=== PATIENT | male | born 1960 | race Caucasian/White ===

== ENCOUNTER 2016-11-27 21:51 | Inpatient (IN) | payer MEDICAID ==
[~2016-11-27] VITALS: Ht 185.4 cm; Wt 112.0 kg
[~2016-11-27 21:51] MED LIST: ALBUAER3 IN; TAM04C PO
[2016-11-27 23:38] LABS: Basophils # (auto) 0 uL; Basophils % (auto) 0.3 % (0.0-2.0); CONDITION Y; Eosinophils # (auto) 0 uL; Eosinophils % (auto) 0.3 % (0.0-7.0); Hematocrit 42.2 % (41.0-53.0); Hemoglobin 14.2 g/dL (13.5-17.5); Lymphocytes # (auto) 1.9 uL; Lymphocytes % (auto) 17.1 % (10.0-50.0); Mean Corpuscular Hemoglobin 31.2 pg (28.0-32.0); Mean Corpuscular Hgb Conc. 33.6 g/dL (32.0-36.0); Mean Corpuscular Volume 92.8 fL (80.0-100.0); Mean Platelet Volume 8.3 fL (7.4-10.4); Monocytes # (auto) 1.4 uL; Neutrophils # (auto) 7.6 uL; Neutrophils % (auto) 69.3 % (37.0-80.0); Platelet Count (auto) 260 10^3/uL (140-450); Red Cell Distribution Width 15.8 % (11.6-16.0)
[2016-11-27 23:55] LABS: INR 0.99 (0.9-1.15); Partial Thromboplastin Time 25.5 sec (22.64-33.71); Prothrombin Time 10.8 sec (9.37-12.3)
[2016-11-27 23:56] LABS: Albumin 2.2 g/dL (3.4-5.0); Anion Gap 10 (5-15); Aspartate Aminotransferase 11 U/L (15-37); BUN/Creatinine Ratio 9.6; Blood Urea Nitrogen 15 mg/dL (7-18); Calcium 6.5 mg/dL (8.5-10.1); Carbon Dioxide 19 mmol/L (21-32); Chloride 118 mmol/L (98-107); GFR African American 60 mL/min; GFR Non-African American 49 mL/min; Glucose 80 mg/dL (74-106); Potassium 3.2 mmol/L (3.5-5.1); Sodium 147 mmol/L (136-145)
[2016-11-28 00:01] LABS: Alkaline Phosphatase 42 U/L (45-117); Bilirubin, Total 0.5 mg/dL (0.2-1.0); Total Protein 5.3 g/dL (6.4-8.2)
[2016-11-28] MEDS ORDERED: SODIUM CHLORIDE 0.9% 1,000 ML IV ONE (07:22)
[2016-11-28 08:18] LABS: Urine Bilirubin Negative (Negative); Urine Blood Negative /uL (Negative); Urine Color Yellow (Yellow); Urine Glucose Normal (Normal); Urine Ketone Negative (Negative); Urine Mucus FEW (None Seen); Urine Nitrite Negative (Negative); Urine RBC <1 /hpf (0 - 3); Urine Squamous Epithelial Cell FEW /hpf (<5); Urine Urobilinogen Normal (Negative)
[2016-11-28] MEDS ORDERED: ACETAMINOPHEN 500 MG TAB PO PRN (09:00)
[2016-11-28] MEDS ORDERED: TEMAZEPAM 15 MG CAP PO PRN (09:00)
[2016-11-28] MEDS ORDERED: MORPHINE SULF INJ 2 MG/ML SYRINGE 1ML IV PRN (09:00)
[2016-11-28] MEDS ORDERED: PROMETHAZINE HCL 25 MG/ML 1ML IV PRN (09:00)
[2016-11-28] MEDS ORDERED: LACTULOSE 20Gm/30ML SOLN PO PRN (09:00)
[2016-11-28] MEDS ORDERED: cefTRIAXone 1GM/50ML D5W 50 ML IV SCH (09:00)
[2016-11-28] MEDS ORDERED: ALBUTEROL SULF 2.5 MG/0.5ML(0.5%) NEB SOLN NEB PRN (09:00)
[2016-11-28] MEDS ORDERED: NITROGLYCERIN 0.4 MG SL TAB SL PRN (09:00)
[2016-11-28] MEDS ORDERED: LORazepam 0.5 MG TAB PO PRN (09:00)
[2016-11-28] MEDS ORDERED: HYDROcodone-ACET 5/325MG TAB PO PRN (09:00)
[2016-11-28] MEDS ORDERED: MORPHINE SULFATE 4 MG/ML SYRG IV PRN (09:00)
[2016-11-28] MEDS: ASPirin 81 mg TAB PO SCH (10:07)
[2016-11-28] MEDS: ENOXAPARIN SOD 40 MG/0.4 ML SYRINGE SC SCH (10:07)
[2016-11-28] MEDS: TAMSULOSIN HYDROCHLORIDE 0.4 MG CAP PO SCH (10:07)
[2016-11-28] MEDS: SODIUM CHLORIDE 0.9% 1,000 ML IV SCH ×2 (10:07→21:45)
[2016-11-28] MEDS: ALBUTEROL SULF 2.5 MG/0.5ML(0.5%) NEB SOLN NEB SCH ×2 (11:00→19:47)
[2016-11-28] MEDS ORDERED: LEVOFLOXACIN 500MG 100 ML IV ONE (11:45)
[2016-11-28] MEDS ORDERED: POTASSIUM CHL 20 Meq TABLET PO ONE (11:45)
[2016-11-28 17:29] VITALS: BP 102/70
[2016-11-28] MEDS: FUROSEMIDE 20 MG/2 ML VIAL IV SCH (17:45)
[2016-11-28] MEDS ORDERED: cefTRIAXone 1GM/50ML D5W 50 ML IV ONE (18:30)
[2016-11-28 19:51] VITALS: BP 102/70
[2016-11-28] MEDS: PANTOPRAZOLE 40 MG TAB PO SCH (20:24)
[2016-11-28 21:30] VITALS: BP 99/64
[2016-11-28] MEDS ORDERED: ATORVASTATIN 20 MG TAB PO SCH ×2 (22:00)
[2016-11-29] VITALS (7 sets, daily range): BP systolic 102–115; BP diastolic 59–77
[2016-11-29] MEDS: ALBUTEROL SULF 2.5 MG/0.5ML(0.5%) NEB SOLN NEB SCH ×3 (00:28→11:53)
[2016-11-29] MEDS: FUROSEMIDE 20 MG/2 ML VIAL IV SCH ×2 (05:32→17:54)
[2016-11-29 06:41] LABS: Basophils # (auto) 0 uL; Basophils % (auto) 0.6 % (0.0-2.0); CONDITION Y; Eosinophils # (auto) 0.2 uL; Eosinophils % (auto) 2.5 % (0.0-7.0); Hematocrit 47.4 % (41.0-53.0); Hemoglobin 16.4 g/dL (13.5-17.5); Lymphocytes # (auto) 2.6 uL; Lymphocytes % (auto) 32.8 % (10.0-50.0); Mean Corpuscular Hemoglobin 31.5 pg (28.0-32.0); Mean Corpuscular Hgb Conc. 34.6 g/dL (32.0-36.0); Mean Corpuscular Volume 91.3 fL (80.0-100.0); Mean Platelet Volume 8.7 fL (7.4-10.4); Monocytes # (auto) 1.1 uL; Monocytes % (auto) 14.1 % (0.0-12.0); Neutrophils # (auto) 3.9 uL; Platelet Count (auto) 297 10^3/uL (140-450); Red Cell Distribution Width 15.4 % (11.6-16.0); White Blood Cell 7.8 10^3/uL (4.4-10.8)
[2016-11-29 06:49] LABS: INR 0.96 (0.9-1.15); Prothrombin Time 10.5 sec (9.37-12.3)
[2016-11-29 06:54] LABS: Albumin 2.7 g/dL (3.4-5.0); BUN/Creatinine Ratio 12.4; Magnesium 2.2 mg/dL (1.6-2.6); Potassium 3.8 mmol/L (3.5-5.1)
[2016-11-29 07:09] LABS: Bilirubin, Total 0.7 mg/dL (0.2-1.0)
[2016-11-29] MEDS ORDERED: cefTRIAXone 1GM/50ML D5W 50 ML IV SCH (09:00)
[2016-11-29] MEDS: ASPirin 81 mg TAB PO SCH (09:11)
[2016-11-29] MEDS: SODIUM CHLORIDE 0.9% 1,000 ML IV SCH (09:11)
[2016-11-29] MEDS: ENOXAPARIN SOD 40 MG/0.4 ML SYRINGE SC SCH (09:12)
[2016-11-29] MEDS: PANTOPRAZOLE 40 MG TAB PO SCH (09:12)
[2016-11-29] MEDS: TAMSULOSIN HYDROCHLORIDE 0.4 MG CAP PO SCH (09:12)
[2016-11-29] MEDS ORDERED: LEVOFLOXACIN 500MG 100 ML IV SCH (10:00)
[2016-11-29] MEDS ORDERED: ATOR20TA50 PO (14:28)
[2016-11-29] MEDS ORDERED: ASPI81CH43 PO (14:28)
== END 2016-11-29 19:08 | disposition home or self-care (01) | DRG 45 ==
LOC: EDBD 21:51 → ER 22:03 → TELE 22:04 → TELE-E-ADS 11-28 12:45 → TELE-CENTR 11-28 16:32
PROVIDERS: ADMIT Internal Medicine; ATTEND Internal Medicine
DX: I63.9 Cerebral infarction, unspecified (principal); N17.0 Acute kidney failure with tubular necrosis; I27.2 Other secondary pulmonary hypertension; I95.9 Hypotension, unspecified; E87.8 Other disorders of electrolyte and fluid balance, not elsewhere classified; E87.1 Hypo-osmolality and hyponatremia; J44.1 Chronic obstructive pulmonary disease with (acute) exacerbation; D72.829 Elevated white blood cell count, unspecified; E83.51 Hypocalcemia; N20.0 Calculus of kidney; E86.0 Dehydration; E87.6 Hypokalemia; F15.10 Other stimulant abuse, uncomplicated; G47.10 Hypersomnia, unspecified; G56.02 Carpal tunnel syndrome, left upper limb; I25.2 Old myocardial infarction; N40.0 Benign prostatic hyperplasia without lower urinary tract symptoms; T67.5XXA Heat exhaustion, unspecified, initial encounter; Z80.0 Family history of malignant neoplasm of digestive organs; Z80.1 Family history of malignant neoplasm of trachea, bronchus and lung; Z83.3 Family history of diabetes mellitus; Z85.038 Personal history of other malignant neoplasm of large intestine; Z90.5 Acquired absence of kidney; E66.9 Obesity, unspecified; Z68.32 Body mass index [BMI] 32.0-32.9, adult; Z71.89 Other specified counseling; R20.8 Other disturbances of skin sensation; I45.10 Unspecified right bundle-branch block; I25.10 Atherosclerotic heart disease of native coronary artery without angina pectoris
CPT/HCPCS: 36415; 70450; 70551; 71010; 74176; 80053; 80061; 80307; 81001; 82150; 82550; 82607; 82746; 83690; 83735; 84443; 84484; 85025; 85379; 85610; 85652; 85730; 86141; 87086; 93005; 93306; 93886; 94640; 94761; 96361; 96365; 96367; 96372; J0696; J1956

== ENCOUNTER 2019-02-22 01:21 | Inpatient (IN) | payer MEDICAID ==
[~2019-02-22] VITALS: Ht 185.4 cm; Wt 128.3 kg
[~2019-02-22 01:21] MED LIST changes: +ASPI81CH43 PO; +ATOR20TA50 PO
[2019-02-22 02:15] LABS: Basophils # (auto) 0 uL; Basophils % (auto) 0.3 % (0.0-2.0); Eosinophils # (auto) 0 uL; Eosinophils % (auto) 0.3 % (0.0-7.0); Hematocrit 48.9 % (41.0-53.0); Hemoglobin 16.4 g/dL (13.5-17.5); Lymphocytes # (auto) 2.7 uL; Lymphocytes % (auto) 20.9 % (10.0-50.0); Mean Corpuscular Hemoglobin 31.4 pg (28.0-32.0); Mean Corpuscular Hgb Conc. 33.5 g/dL (32.0-36.0); Mean Corpuscular Volume 93.9 fL (80.0-100.0); Monocytes # (auto) 2.3 uL; Neutrophils # (auto) 7.9 uL; Neutrophils % (auto) 60.5 % (37.0-80.0); Platelet Count (auto) 278 10^3/uL (140-450); Red Blood Cells 5.21 10^6/uL (4.5-5.90); Red Cell Distribution Width 14.3 % (11.8-14.3)
[2019-02-22] MEDS ORDERED: FUROSEMIDE 20 MG/2 ML VIAL IV ONE (02:15)
[2019-02-22] MEDS ORDERED: MORPHINE SULFATE 4 MG/ML SYR/VIAL IV ONE (02:30)
[2019-02-22] MEDS ORDERED: ONDANSETRON HCL 4 MG/2 ML VIAL IV ONE (02:30)
[2019-02-22 02:31] LABS: INR 0.96 (0.9-1.15); Partial Thromboplastin Time 24.5 sec (23.64-32.05)
[2019-02-22 02:33] LABS: Albumin 2.8 g/dL (3.4-5.0); Anion Gap 8 (5-15); BUN/Creatinine Ratio 30.3; Blood Urea Nitrogen 43 mg/dL (7-18); Calcium 7.7 mg/dL (8.5-10.1); Carbon Dioxide 25 mmol/L (21-32); Chloride 101 mmol/L (98-107); GFR African American 66 mL/min; GFR Non-African American 54 mL/min; Glucose 113 mg/dL (74-106); Magnesium 2.4 mg/dL (1.6-2.6); Potassium 3.4 mmol/L (3.5-5.1); Sodium 134 mmol/L (136-145)
[2019-02-22 02:38] LABS: Alanine Aminotransferase 20 U/L (16-61); Alkaline Phosphatase 57 U/L (45-117); Aspartate Aminotransferase 16 U/L (15-37); Bilirubin, Total 0.5 mg/dL (0.2-1.0); Total Protein 6.4 g/dL (6.4-8.2)
[2019-02-22] MEDS ORDERED: LEVOFLOXACIN 750MG 150 ML IV ONE (04:00)
[2019-02-22] MEDS ORDERED: methylPREDNISolone SOD SUCC 125 MG/2 ML VL IV ONE (04:00)
[2019-02-22] MEDS ORDERED: IPRATROPIUM BROM 0.5 MG/2.5ML INH SOL NEB ONE (06:00)
[2019-02-22] MEDS ORDERED: ALBUTEROL SULF 2.5 MG/0.5ML(0.5%) NEB SOLN NEB ONE (06:00)
[2019-02-22] MEDS ORDERED: HYDROcodone-ACET 5/325MG TAB PO PRN (07:45)
[2019-02-22] MEDS ORDERED: NITROGLYCERIN 0.4 MG SL TAB SL PRN (07:45)
[2019-02-22] MEDS ORDERED: MORPHINE SULF INJ 2 MG/ML SYRINGE 1ML IV PRN (07:45)
[2019-02-22] MEDS ORDERED: ACETAMINOPHEN 325 MG TAB PO PRN (07:45)
[2019-02-22] MEDS ORDERED: TEMAZEPAM 15 MG CAP PO PRN (07:45)
[2019-02-22] MEDS ORDERED: ONDANSETRON HCL 4 MG/2 ML VIAL IV PRN (07:45)
[2019-02-22] MEDS: SILDENAFIL CITRATE 20 MG TAB PO SCH ×3 (08:39→20:19)
[2019-02-22] MEDS ORDERED: POTASSIUM CHL 20 Meq TABLET PO ONE (08:45)
[2019-02-22] MEDS ORDERED: CARV3.1240 (08:45)
[2019-02-22] MEDS ORDERED: TAMS0.4C36 (08:45)
[2019-02-22] MEDS ORDERED: SILD20TA18 (08:45)
[2019-02-22] MEDS ORDERED: ALBUTEROL SULF 2.5 MG/0.5ML(0.5%) NEB SOLN NEB PRN (08:45)
[2019-02-22] MEDS ORDERED: LISI-275 (08:45)
[2019-02-22] MEDS ORDERED: FUR20T (08:45)
[2019-02-22] MEDS ORDERED: potassium (08:45)
[2019-02-22 09:22] LABS: Alcohol, Urine < 3.0 mg/dL (0-5); Amphetamine Screen, Urine POSITIVE (NEGATIVE); Barbiturate Scree,Urine NEGATIVE (NEGATIVE); Benzodiazephine Screen, Urine NEGATIVE (NEGATIVE); Cannabinoid Screen, Urine NEGATIVE (NEGATIVE); Cocaine Screen, Urine NEGATIVE (NEGATIVE); Opiate Scree,Urine NEGATIVE (NEGATIVE); Phencyclidine Screen, Urine NEGATIVE (NEGATIVE)
[2019-02-22] MEDS ORDERED: ADENOSINE 103 MG in GIVE UN-DILUTED 0 ML IV STA (10:13)
[2019-02-22] MEDS: CARVEDILOL 3.125 MG TAB PO SCH ×2 (10:36→22:15)
[2019-02-22] MEDS: FUROSEMIDE 20 MG TAB PO SCH (10:36)
[2019-02-22] MEDS: APIXABAN 5 MG TAB PO SCH ×2 (10:36→22:15)
[2019-02-22] MEDS: ASPirin 81 mg TAB PO SCH (10:36)
[2019-02-22] MEDS: LISINOPRIL 5 MG TAB PO SCH (10:37)
--- NOTE | 2019-02-22 11:00 | NUR ---
ER TRANSFER PATIENT TRANSFERRED TO [facility] ROOM BY ER STAFF. NO REPORT WAS GIVEN. CHARGE NURSE AWARE. PT IS SITTING IN BED. ALERT AND ORIENTED. NO SIGNS OF DISTRESS NOTED. INSTRUCTED OF POC AND TO CALL FOR ASSISTANCE PRN. BED IN LOWEST POSITION. SIDE RAILS UP X2. WILL CONTINUE TO MONITOR.
--- NOTE | 2019-02-22 11:10 | NUR ---
NO TRANSFER REPORT OR NOTICE RECEIVED FROM ER. CHARGE NURSE AWARE.
--- NOTE | 2019-02-22 11:20 | NUR ---
DOCTOR AT BEDSIDE. SPOKE WITH PATIENT. DISCUSSED POC.
[2019-02-22 11:23] VITALS: BP 114/74
[2019-02-22 12:09] VITALS: BP 138/66
[2019-02-22 13:00] VITALS: BP 114/74
[2019-02-22 17:00] VITALS: BP 112/68
[2019-02-22] MEDS: TAMSULOSIN HYDROCHLORIDE 0.4 MG CAP PO SCH (18:18)
[2019-02-22] MEDS ORDERED: SODIUM CHLORIDE 0.9% 500 ML IV SCH (19:30)
--- NOTE | 2019-02-22 19:50 | NUR ---
Opening Shift Note Assumed care of patient, awake and alert. No S/S of distress/SOB or pain. Patient was a little anxious about the procedure thats going to happen tomorrow. I try to hear him out about his concerns. Instructed on POC and to call for assist PRN, will continue to monitor for changes Q1hr and PRN.
[2019-02-22 21:46] VITALS: BP 117/80
[2019-02-22] MEDS: ATORVASTATIN 20 MG TAB PO SCH (22:15)
[2019-02-23 04:59] VITALS: BP 129/70
[2019-02-23 08:09] LABS: Basophils # (auto) 0 uL; Basophils % (auto) 0.3 % (0.0-2.0); Eosinophils # (auto) 0 uL; Eosinophils % (auto) 0.1 % (0.0-7.0); Hematocrit 49.5 % (41.0-53.0); Hemoglobin 16.4 g/dL (13.5-17.5); Lymphocytes % (auto) 12.7 % (10.0-50.0); Mean Corpuscular Hemoglobin 31.1 pg (28.0-32.0); Mean Corpuscular Volume 94.1 fL (80.0-100.0); Monocytes % (auto) 12.9 % (0.0-12.0); Neutrophils # (auto) 11.6 uL; Nucleated Red Blood Cells % 0.1 %; Platelet Count (auto) 273 10^3/uL (140-450); Red Blood Cells 5.27 10^6/uL (4.5-5.90); Red Cell Distribution Width 13.9 % (11.8-14.3); White Blood Cell 15.6 10^3/uL (4.4-10.8)
--- NOTE | 2019-02-23 08:13 | NUR ---
OPENING SHIFT NOTE ASSUMED CARE OF PATIENT. PATIENT AWAKE IN BED AND ALERT AND ORIENTED. NO SIGNS OF DISTRESS. INSTRUCTED OF POC AND TO CALL FOR ASSISTANCE PRN. BED IN LOWEST POSITION. SIDE RAILS UP X2. WILL CONTINUE TO MONITOR.
[2019-02-23 08:23] LABS: Calcium 7.9 mg/dL (8.5-10.1); Potassium 4.8 mmol/L (3.5-5.1)
[2019-02-23 08:25] LABS: BUN/Creatinine Ratio 26.4
[2019-02-23 08:29] LABS: INR 0.96 (0.9-1.15); Partial Thromboplastin Time 25.6 sec (23.64-32.05)
[2019-02-23 09:00] VITALS: BP 116/88
[2019-02-23] MEDS: predniSONE 20 MG TAB PO SCH (09:45)
[2019-02-23] MEDS: SILDENAFIL CITRATE 20 MG TAB PO SCH ×3 (09:45→21:47)
[2019-02-23] MEDS: LISINOPRIL 5 MG TAB PO SCH (09:45)
[2019-02-23] MEDS: ASPirin 81 mg TAB PO SCH (10:00)
[2019-02-23] MEDS: FUROSEMIDE 20 MG TAB PO SCH (10:00)
[2019-02-23] MEDS: APIXABAN 5 MG TAB PO SCH ×2 (10:00→21:47)
[2019-02-23] MEDS: CARVEDILOL 3.125 MG TAB PO SCH ×2 (10:00→21:47)
[2019-02-23 13:00] VITALS: BP 129/66
--- NOTE | 2019-02-23 13:41 | NUR ---
PT TAKEN TO RN PEDIATRIC. NO DISTRESS NOTED.
[2019-02-23] MEDS ORDERED: MIDAZOLAM HCL 1MG/1ML-2 ML VIAL ONE (13:58)
[2019-02-23] MEDS ORDERED: ANGIOMAX 250 MG VIAL IV ONE (13:58)
[2019-02-23] MEDS ORDERED: SODIUM CHL 0.9% 0 ML ONE (13:58)
[2019-02-23] MEDS ORDERED: fentaNYL CITRATE 100 MCG/2 ML VL ONE (13:58)
--- NOTE | 2019-02-23 14:30 | NUR ---
RECEIVED CARDIAC MR FAX FROM [facility] PER REQUEST.
[2019-02-23] MEDS ORDERED: IOHEXOL 350 MG/ML 100ML IJ ONE (14:59)
[2019-02-23] MEDS ORDERED: LIDOCAINE 2%HCL (LOCAL ANESTH.) INJ 20ML MDV ONE (14:59)
--- NOTE | 2019-02-23 15:30 | NUR ---
PT RETURNED FROM [employer]. NO DISTRESS NOTED. PT RESTING COMFORTABLY IN BED. CAN SIT UP AT 1700. VITAL SIGNS STABLE. DIET RESUMED.
[2019-02-23 16:38] VITALS: BP 114/81
[2019-02-23] MEDS: TAMSULOSIN HYDROCHLORIDE 0.4 MG CAP PO SCH (17:13)
--- NOTE | 2019-02-23 19:45 | NUR ---
ASSUMED CARE, PT. AWAKE, RELATIVE AT BEDSIDE, NO C/O PAIN, DRESSING ON RT. GROIN DRY AND INTACT, NO SOB.
[2019-02-23] MEDS: ATORVASTATIN 20 MG TAB PO SCH (21:48)
[2019-02-23 23:06] VITALS: BP 108/62
[2019-02-24] VITALS (7 sets, daily range): BP systolic 93–112; BP diastolic 55–71
[2019-02-24 05:44] LABS: BUN/Creatinine Ratio 27.7; Calcium 7.5 mg/dL (8.5-10.1); Potassium 3.8 mmol/L (3.5-5.1)
[2019-02-24] MEDS: SILDENAFIL CITRATE 20 MG TAB PO SCH ×3 (08:15→20:00)
[2019-02-24] MEDS: FUROSEMIDE 20 MG TAB PO SCH (09:18)
[2019-02-24] MEDS: LISINOPRIL 5 MG TAB PO SCH (09:19)
[2019-02-24] MEDS: predniSONE 20 MG TAB PO SCH (09:19)
[2019-02-24] MEDS: CARVEDILOL 3.125 MG TAB PO SCH ×2 (09:20→21:10)
[2019-02-24] MEDS: APIXABAN 5 MG TAB PO SCH ×2 (09:20→21:09)
[2019-02-24] MEDS: ASPirin 81 mg TAB PO SCH (09:20)
[2019-02-24] MEDS: ALBUTEROL SULF 2.5 MG/0.5ML(0.5%) NEB SOLN NEB SCH ×3 (14:23→22:43)
[2019-02-24] MEDS: TAMSULOSIN HYDROCHLORIDE 0.4 MG CAP PO SCH (17:50)
[2019-02-24] MEDS: BUDESONIDE (INHALATION) 0.5 MG/2 ML NEB NEB SCH (19:19)
--- NOTE | 2019-02-24 19:30 | NUR ---
assumed care, pt. awake, no c/o pain, pt. having breathing treatment, not in distress.
[2019-02-24] MEDS: ATORVASTATIN 20 MG TAB PO SCH (21:10)
--- NOTE | 2019-02-24 22:45 | NUR ---
pt. c/o chest pain, 10, v/s as follows, bp-108/66, p-77, r-20, sats at 98%, to keep monitor.
--- NOTE | 2019-02-24 22:51 | NUR ---
pt. on breathing tx at this time, pt. refused pain pill and iv pain med. no c/o pain of chest pain at this time.
[2019-02-25] MEDS: ALBUTEROL SULF 2.5 MG/0.5ML(0.5%) NEB SOLN NEB SCH ×5 (02:07→18:44)
--- NOTE | 2019-02-25 05:10 | NUR ---
v/s stable, no c/o chest pain, not in distress.
[2019-02-25 05:30] VITALS: BP 128/70
[2019-02-25] MEDS: BUDESONIDE (INHALATION) 0.5 MG/2 ML NEB NEB SCH (07:36)
[2019-02-25] MEDS: SILDENAFIL CITRATE 20 MG TAB PO SCH ×2 (08:25→14:12)
[2019-02-25 09:00] VITALS: BP 127/82
--- NOTE | 2019-02-25 09:05 | NUR ---
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
--- NOTE | 2019-02-25 09:15 | NUR ---
called family spoke to Arturo the son, made aware transportation ETA will be at 0930.
--- NOTE | 2019-02-25 10:10 | NUR ---
PT SEEN BY DR. HARRIS PER DR. HARRIS PT IS CLEARED BY CARDIOLOGY TO BE DISCHARGED WITH [facility].
[2019-02-25] MEDS ORDERED: APIX5TAB PO (10:20)
[2019-02-25] MEDS: APIXABAN 5 MG TAB PO SCH (10:24)
[2019-02-25] MEDS: predniSONE 20 MG TAB PO SCH (10:24)
[2019-02-25] MEDS: FUROSEMIDE 20 MG TAB PO SCH (10:24)
[2019-02-25] MEDS: ASPirin 81 mg TAB PO SCH (10:25)
[2019-02-25] MEDS: CARVEDILOL 3.125 MG TAB PO SCH (10:26)
[2019-02-25] MEDS: LISINOPRIL 5 MG TAB PO SCH (10:27)
--- NOTE | 2019-02-25 11:48 | NUR ---
LASHANDA OF [employer] CALLED, SHE REQUESTED TO FAX ECHOCARDIOGRAM REPORT TO COMPLETE [facility] ORDER. FAX NUMBER [phone], TEL# [phone]. ECHOCARDIOGRAM REPORT FAXED.
[2019-02-25 13:00] VITALS: BP 108/64
[2019-02-25 13:34] VITALS: BP 108/64
--- NOTE | 2019-02-25 15:44 | NUR ---
NUTRITION ASSESSMENT NOTES Please refer to link notes of nutrition screen form filed under the intervention section of the plan of care for further details. Est. Needs: 1950 kcal to 2550 kcal (15-20 kcal/kgBW), 84 gms to 101 gms pro (1.0-1.2 gms/kgIBW: 84 kg). Will continue to monitor pertinent labs and reassess nutrient need prn Thank you. Addendum: 02/25/19 at [address] Amended: Links added.
[2019-02-25 17:00] VITALS: BP 127/67
--- NOTE | 2019-02-25 17:35 | NUR ---
Zoll vest delivered, pt was educated on how to use the zoll vest, demonstration done by the [employer] admissions representative and pt verbalized understanding.
[2019-02-25] MEDS: TAMSULOSIN HYDROCHLORIDE 0.4 MG CAP PO SCH (18:00)
--- NOTE | 2019-02-25 18:15 | NUR ---
Discharge instructions given as ordered. Encourage to follow up with Dr. Eugene on March 08, pt has previous appointment, follow up [facility] Dr. Oneal Brown in 1 week, pt verbalized he will make his own appointment. All questions and concerns addressed. Patient verbalized understanding. Medication reconciliation form completed and copy given to patient. IV removed with catheter intact, pressure dressing applied. Telemetry unit returned to ICU. Patient taken to vehicle via wheelchair with all personal belongings, accompanied by staff and family member. No distress noted at time of departure.
--- NOTE | 2019-02-25 18:44 | NUR ---
RT NOTE RT TO SEE PT FOR HHN TX. BED IS EMPTY. SPOKE WITH NURSE AND PT WAS DISCHARGED. MEDS WERE RETURNED TO [facility].
== END 2019-02-25 18:25 | disposition home or self-care (01) | DRG 192 ==
LOC: ER 01:22 → TELE 01:23 → TELE-WESTW 10:50
PROVIDERS: ADMIT Nurse Practitioner; ATTEND Internal Medicine Nephrology
PROC: 4A023N8 Measurement of Cardiac Sampling and Pressure, Bilateral, Percutaneous Approach (ICD-10-PCS; principal; 2019-02-23)
PROC: B2111ZZ Fluoroscopy of Multiple Coronary Arteries using Low Osmolar Contrast (ICD-10-PCS; 2019-02-23)
PROC: B2151ZZ Fluoroscopy of Left Heart using Low Osmolar Contrast (ICD-10-PCS; 2019-02-23)
DX: I11.0 Hypertensive heart disease with heart failure (principal); N17.0 Acute kidney failure with tubular necrosis; J96.01 Acute respiratory failure with hypoxia; J44.0 Chronic obstructive pulmonary disease with (acute) lower respiratory infection; I27.20 Pulmonary hypertension, unspecified; I42.7 Cardiomyopathy due to drug and external agent; J45.901 Unspecified asthma with (acute) exacerbation; I50.23 Acute on chronic systolic (congestive) heart failure; J44.1 Chronic obstructive pulmonary disease with (acute) exacerbation; D72.829 Elevated white blood cell count, unspecified; J20.9 Acute bronchitis, unspecified; F15.10 Other stimulant abuse, uncomplicated; E66.9 Obesity, unspecified; I25.10 Atherosclerotic heart disease of native coronary artery without angina pectoris; Z80.0 Family history of malignant neoplasm of digestive organs; Z80.1 Family history of malignant neoplasm of trachea, bronchus and lung; Z87.442 Personal history of urinary calculi; Z82.49 Family history of ischemic heart disease and other diseases of the circulatory system; Z83.3 Family history of diabetes mellitus; Z86.711 Personal history of pulmonary embolism; I25.2 Old myocardial infarction; Z68.37 Body mass index [BMI] 37.0-37.9, adult
CPT/HCPCS: 36415; 71045; 78452; 80048; 80053; 80307; 83735; 83880; 84484; 85025; 85610; 85730; 86850; 86900; 86901; 93005; 93017; 93306; 93460; 94640; 96361; 96365; 96375; 99152; 99153; C1751; G0378; J0153; J1956; J2250; J2405

== ENCOUNTER 2022-05-20 20:55 | Inpatient (IN) | payer MEDICAID ==
[~2022-05-20] VITALS: Ht 182.9 cm; Wt 121.5 kg
[~2022-05-20 20:55] MED LIST changes: +APIX5TAB PO; +SILD20TA2
[2022-05-20 21:36] VITALS: BP 125/77
[2022-05-20] MEDS ORDERED: ALBUTEROL SULF 2.5 MG/0.5ML(0.5%) NEB SOLN NEB ONE (21:45)
[2022-05-20] MEDS ORDERED: IPRATROPIUM BROM 0.5 MG/2.5ML INH SOL NEB ONE (21:45)
[2022-05-20] MEDS ORDERED: ACETAMINOPHEN 325 MG TAB PO ONE ×2 (21:49→22:00)
[2022-05-20 22:20] LABS: Basophils # (auto) 0 10 ^3/uL (0-0.2); Basophils % (auto) 0.5 % (0.0-2.0); Eosinophils # (auto) 0.2 10 ^3/uL (0-0.8); Eosinophils % (auto) 1.8 % (0.0-7.0); Hematocrit 49.4 % (41.0-53.0); Hemoglobin 16.8 g/dL (13.5-17.5); Lymphocytes # (auto) 3.1 10 ^3/uL (0.4-5.4); Lymphocytes % (auto) 34.4 % (10.0-50.0); Mean Corpuscular Hemoglobin 31.7 pg (28.0-32.0); Mean Corpuscular Hgb Conc. 34.1 g/dL (32.0-36.0); Mean Corpuscular Volume 93.1 fL (80.0-100.0); Monocytes # (auto) 1.5 10 ^3/uL (0-1.3); Monocytes % (auto) 16.5 % (0.0-12.0); Neutrophils # (auto) 4.2 10 ^3/uL (1.6-8.6); Neutrophils % (auto) 46.8 % (37.0-80.0); Nucleated Red Blood Cells % 0.1 %; Red Cell Distribution Width 15.4 % (11.8-14.3)
[2022-05-20] MEDS ORDERED: methylPREDNISolone SOD SUCC 125 MG/2 ML VL IV ONE (22:30)
[2022-05-20 22:31] LABS: Albumin 2.8 g/dL (3.4-5.0); Calcium 8.4 mg/dL (8.5-10.1); Potassium 4.5 mmol/L (3.5-5.1)
[2022-05-20 22:33] LABS: BUN/Creatinine Ratio 18.4
[2022-05-20 22:36] LABS: Bilirubin, Total 0.9 mg/dL (0.2-1.0); Total Protein 6.1 g/dL (6.4-8.2)
[2022-05-21] MEDS ORDERED: HYDROcodone-ACET 5/325MG TAB PO PRN (06:00)
[2022-05-21] MEDS ORDERED: MORPHINE SULFATE INJ 2 MG/ml SYRG IV PRN (06:00)
[2022-05-21] MEDS ORDERED: cefTRIAXone 1GM/50ML D5W 50 ML IV SCH (06:00)
[2022-05-21] MEDS ORDERED: SODIUM CHLORIDE 0.9% 1,000 ML IV SCH (06:00)
[2022-05-21] MEDS ORDERED: ONDANSETRON HCL 4 MG/2 ML VIAL IV PRN (06:00)
[2022-05-21] MEDS ORDERED: ACETAMINOPHEN 325 MG TAB PO PRN (06:00)
[2022-05-21] MEDS ORDERED: LORazepam 0.5 MG TAB PO PRN (06:00)
[2022-05-21] MEDS ORDERED: DOCUSATE SOD 100 MG CAP PO PRN (06:00)
[2022-05-21] MEDS ORDERED: AZITHROMYCIN 500MG/ 250ML 250 ML IV SCH (06:00)
[2022-05-21] MEDS ORDERED: TEMAZEPAM 15 MG CAP PO PRN (06:00)
[2022-05-21] MEDS ORDERED: amLODIPine BESYLATE 5 MG TAB PO SCH (10:00)
[2022-05-21] MEDS ORDERED: methylPREDNISolone SOD SUCC 40 MG/ML VL IV SCH (10:00)
[2022-05-21] MEDS ORDERED: PANTOPRAZOLE 40 MG TAB PO SCH (10:00)
== END 2022-05-21 08:42 | disposition left against medical advice (07) | DRG 190 ==
LOC: ER 20:55 → OVERFLOW 05-21 05:48
PROVIDERS: ADMIT Hospitalist; ATTEND Student in an Organized Health Care Education/Training Program
DX: I21.4 Non-ST elevation (NSTEMI) myocardial infarction (principal); I11.0 Hypertensive heart disease with heart failure; I50.9 Heart failure, unspecified; Z53.29 Procedure and treatment not carried out because of patient's decision for other reasons; Z20.822 Contact with and (suspected) exposure to COVID-19; J44.9 Chronic obstructive pulmonary disease, unspecified; Z87.442 Personal history of urinary calculi; Z85.038 Personal history of other malignant neoplasm of large intestine; Z83.3 Family history of diabetes mellitus; Z85.028 Personal history of other malignant neoplasm of stomach; Z80.1 Family history of malignant neoplasm of trachea, bronchus and lung; Z82.49 Family history of ischemic heart disease and other diseases of the circulatory system; Z80.0 Family history of malignant neoplasm of digestive organs
CPT/HCPCS: 36415; 71046; 80053; 83605; 85025; 87040; 87426; 87804; 93005; 94640; 96374; 99291; G0378

== ENCOUNTER 2023-01-08 09:58 | Inpatient (IN) | payer MEDICAID ==
[2023-01-08] VITALS: PULSE 95
[~2023-01-08] VITALS: Ht 185.4 cm; Wt 132.5 kg
[~2023-01-08 09:58] MED LIST changes: -TAM04C PO; +TAMS-35 PO
[2023-01-08 10:54] LABS: Basophils # (auto) 0.1 10 ^3/uL (0-0.2); Basophils % (auto) 0.4 % (0.0-2.0); Eosinophils # (auto) 0.1 10 ^3/uL (0-0.8); Eosinophils % (auto) 0.5 % (0.0-7.0); Hematocrit 46.6 % (41.0-53.0); Lymphocytes # (auto) 2.5 10 ^3/uL (0.4-5.4); Lymphocytes % (auto) 19.7 % (10.0-50.0); Mean Corpuscular Hemoglobin 30.6 pg (28.0-32.0); Mean Corpuscular Hgb Conc. 32.2 g/dL (32.0-36.0); Mean Corpuscular Volume 94.9 fL (80.0-100.0); Monocytes # (auto) 1.5 10 ^3/uL (0-1.3); Monocytes % (auto) 11.9 % (0.0-12.0); Neutrophils # (auto) 8.7 10 ^3/uL (1.6-8.6); Neutrophils % (auto) 67.5 % (37.0-80.0); Nucleated Red Blood Cells % 0.2 %; Red Blood Cells 4.91 10^6/uL (4.5-5.90); Red Cell Distribution Width 16.3 % (11.8-14.3); White Blood Cell 12.9 10^3/uL (4.4-10.8)
[2023-01-08 10:58] VITALS: PULSE 126; RESP 18; O2SAT 93
[2023-01-08] MEDS ORDERED: FUROSEMIDE 40 MG/4 ML VIAL IV ONE (11:00)
[2023-01-08] MEDS ORDERED: PIPERACILLIN-TAZOB 3.375GM 100 ML IV ONE (11:00)
[2023-01-08] MEDS ORDERED: dilTIAZem 25 MG/5 ML VIAL IV ONE (11:15)
[2023-01-08 11:17] LABS: Alanine Aminotransferase 85 U/L (7-40); Albumin 3.4 g/dL (3.2-4.8); Alkaline Phosphatase 91 U/L (46-116); Anion Gap 9.1 (5-15); Aspartate Aminotransferase 74 U/L (13-40); Bilirubin, Total 2.5 mg/dL (0.2-1.0); Calcium 8.7 mg/dL (8.7-10.4); Carbon Dioxide 22.9 mmol/L (20-30); Chloride 103 mmol/L (98-107); Glucose 123 mg/dL (74-106); Potassium 3.5 mmol/L (3.5-5.1); Sodium 135 mmol/L (136-145); Total Protein 5.6 g/dL (5.7-8.2)
[2023-01-08] MEDS ORDERED: dilTIAZem 125mg/125ml BAG KIT 125 ML IV ONE (11:45)
[2023-01-08] MEDS ORDERED: ENOXAPARIN SOD 150 MG/1 ML SYRINGE SC ONE (12:15)
[2023-01-08 12:26] LABS: BUN/Creatinine Ratio 21.5 (10.0-20.0); Blood Urea Nitrogen 29 mg/dL (9-23)
[2023-01-08 13:34] LABS: Urine WBC None Seen /hpf (0 - 3)
[2023-01-08 13:47] LABS: Urine Bacteria NONE SEEN /hpf (None Seen); Urine Blood Negative /uL (Negative); Urine Clarity Clear (Clear); Urine Protein, UAD Negative (Negative); Urine Specific Gravity 1.005 (1.001-1.035); Urine Urobilinogen Normal (Negative)
[2023-01-08 14:09] LABS: Urine Color STRAW (Yellow)
[2023-01-08] MEDS ORDERED: HYDROcodone-ACET 5/325MG TAB PO PRN (14:15)
[2023-01-08] MEDS ORDERED: MORPHINE SULFATE INJ 2 MG/ml SYRG IV PRN ×2 (14:15→21:45)
[2023-01-08] MEDS ORDERED: NITROGLYCERIN 0.4 MG SL TAB SL PRN ×2 (14:15→21:45)
[2023-01-08] MEDS ORDERED: ACETAMINOPHEN 325 MG TAB PO PRN (14:15)
[2023-01-08] MEDS ORDERED: ALBUTEROL SULF 2.5 MG/0.5ML(0.5%) NEB SOLN NEB PRN (14:30)
[2023-01-08] MEDS: PIPERACILLIN-TAZOB 3.375GM 100 ML IV SCH ×2 (14:56→22:06)
[2023-01-08 15:00] VITALS: BP 115/85; PULSE 99; RESP 16; TEMP 98; O2SAT 98
[2023-01-08 15:17] LABS: Triglycerides 106 mg/dL (< 150)
[2023-01-08 15:18] LABS: LDL Cholesterol 60 mg/dL (< 100)
[2023-01-08 15:19] LABS: Cholesterol 114 mg/dL (< 200); HDL Cholesterol 48 mg/dL (40-59)
[2023-01-08 15:21] LABS: Amphetamine Screen, Urine Pos (NEGATIVE); Barbiturate Scree,Urine Neg (NEGATIVE)
[2023-01-08 15:23] LABS: Benzodiazephine Screen, Urine Neg (NEGATIVE); Cannabinoid Screen, Urine Neg (NEGATIVE); Cocaine Screen, Urine Neg (NEGATIVE); Opiate Scree,Urine Neg (NEGATIVE); Phencyclidine Screen, Urine Neg (NEGATIVE)
[2023-01-08 15:35] LABS: Base Excess 0.6 mmol/L (-2.0-2.0)
[2023-01-08] MEDS: ALBUTEROL SULF 2.5 MG/0.5ML(0.5%) NEB SOLN NEB SCH ×2 (18:16→21:21)
[2023-01-08] MEDS: IPRATROPIUM BROM 0.5 MG/2.5ML INH SOL NEB SCH ×2 (18:16→21:21)
[2023-01-08] MEDS: dilTIAZem 125mg/125ml BAG KIT 125 ML IV SCH (19:37)
[2023-01-08 19:55] VITALS: PULSE 108; RESP 18; O2SAT 93
[2023-01-08] MEDS ORDERED: APIX5TAB PO (20:10)
[2023-01-08] MEDS ORDERED: PRED10TA PO (20:10)
[2023-01-08] MEDS ORDERED: BUDE0.5S IN (20:10)
[2023-01-08] MEDS ORDERED: ZOFR4T PO (20:10)
[2023-01-08] MEDS ORDERED: LEVO25TA6 PO (20:10)
[2023-01-08] MEDS ORDERED: POTA10TA51 PO (20:10)
[2023-01-08] MEDS ORDERED: BUME1TAB3 PO (20:10)
[2023-01-08] MEDS ORDERED: ENOXAPARIN SOD 100 MG/1 ML SYRINGE SC SCH (22:00)
[2023-01-08] MEDS ORDERED: APIXABAN 5 MG TAB PO SCH (22:00)
[2023-01-08] MEDS: ENOXAPARIN SOD 150 MG/1 ML SYRINGE SC SCH (22:05)
[2023-01-08] MEDS: ATORVASTATIN 20 MG TAB PO SCH (22:06)
[2023-01-08 23:00] VITALS: BP 111/85; PULSE 95; RESP 17; TEMP 97.5; O2SAT 97
[2023-01-08 23:13] VITALS: BP 111/85; PULSE 103; RESP 22; TEMP 97.5; O2SAT 96
[2023-01-09] VITALS (34 sets, daily range): BP systolic 94–134; BP diastolic 56–98; PULSE 72–107; RESP 10–21; TEMP 97.6–98.3; O2SAT 78–100
[2023-01-09] MEDS: IPRATROPIUM BROM 0.5 MG/2.5ML INH SOL NEB SCH ×5 (02:22→18:39)
[2023-01-09] MEDS: ALBUTEROL SULF 2.5 MG/0.5ML(0.5%) NEB SOLN NEB SCH ×5 (02:22→18:39)
[2023-01-09 06:02] LABS: Alanine Aminotransferase 72 U/L (7-40); Albumin 3.2 g/dL (3.2-4.8); Alkaline Phosphatase 79 U/L (46-116); Anion Gap 9.3 (5-15); Aspartate Aminotransferase 57 U/L (13-40); BUN/Creatinine Ratio 15.2 (10.0-20.0); Bilirubin, Total 2.2 mg/dL (0.2-1.0); Blood Urea Nitrogen 21 mg/dL (9-23); Calcium 8.5 mg/dL (8.7-10.4); Carbon Dioxide 23.7 mmol/L (20-30); Chloride 103 mmol/L (98-107); Glucose 143 mg/dL (74-106); Potassium 3.1 mmol/L (3.5-5.1); Sodium 136 mmol/L (136-145); Total Protein 5.5 g/dL (5.7-8.2)
[2023-01-09 06:07] LABS: Basophils # (auto) 0.1 10 ^3/uL (0-0.2); Basophils % (auto) 0.9 % (0.0-2.0); Eosinophils # (auto) 0.1 10 ^3/uL (0-0.8); Eosinophils % (auto) 0.9 % (0.0-7.0); Hematocrit 43.5 % (41.0-53.0); Hemoglobin 14.5 g/dL (13.5-17.5); Lymphocytes % (auto) 19.1 % (10.0-50.0); Mean Corpuscular Hemoglobin 31.6 pg (28.0-32.0); Mean Corpuscular Hgb Conc. 33.3 g/dL (32.0-36.0); Mean Corpuscular Volume 94.9 fL (80.0-100.0); Monocytes # (auto) 1.2 10 ^3/uL (0-1.3); Neutrophils # (auto) 7.3 10 ^3/uL (1.6-8.6); Neutrophils % (auto) 68.1 % (37.0-80.0); Nucleated Red Blood Cells % 0.3 %; Red Blood Cells 4.59 10^6/uL (4.5-5.90); Red Cell Distribution Width 16.5 % (11.8-14.3); White Blood Cell 10.7 10^3/uL (4.4-10.8)
[2023-01-09] MEDS: PIPERACILLIN-TAZOB 3.375GM 100 ML IV SCH ×3 (06:25→22:54)
[2023-01-09] MEDS ORDERED: LEVOTHYROXINE SODIUM 25 MCG TAB PO SCH (07:00)
[2023-01-09] MEDS: dilTIAZem 125mg/125ml BAG KIT 125 ML IV SCH (07:33)
[2023-01-09 08:16] LABS: Hepatitis B Surface Antigen Negative (Negative)
[2023-01-09 08:36] LABS: Hepatitis A Ab IgM Negative
[2023-01-09 08:37] LABS: Hepatitis B Core IgM Negative; Hepatitis C Antibody Negative (Negative)
[2023-01-09] MEDS: ENOXAPARIN SOD 150 MG/1 ML SYRINGE SC SCH (09:48)
[2023-01-09] MEDS ORDERED: ASPirin 81 mg TAB PO SCH (10:00)
[2023-01-09] MEDS ORDERED: SILDENAFIL CITRATE 20 MG TAB PO SCH (10:00)
[2023-01-09] MEDS ORDERED: TAMSULOSIN HYDROCHLORIDE 0.4 MG CAP PO SCH (10:00)
[2023-01-09] MEDS ORDERED: BUMETANIDE 1 MG TAB PO SCH (10:00)
[2023-01-09] MEDS ORDERED: POTASSIUM CHL 20 Meq TABLET PO SCH (10:00)
[2023-01-09] MEDS ORDERED: METOPROLOL TARTRATE 25 MG TAB PO ONE (11:45)
[2023-01-09] MEDS ORDERED: DOCUSATE SOD 100 MG CAP PO ONE (12:15)
[2023-01-09 17:58] LABS: Base Excess -1.6 mmol/L (-2.0-2.0)
[2023-01-09] MEDS ORDERED: POTASSIUM EFFERVESENT TAB 25 MEQ PO ONE (18:15)
[2023-01-09] MEDS: BUMETANIDE 1 MG TAB PO SCH (20:04)
[2023-01-09] MEDS ORDERED: METOPROLOL TARTRATE 25 MG TAB PO SCH (22:00)
[2023-01-09] MEDS ORDERED: CARVEDILOL 3.125 MG TAB PO SCH (22:00)
[2023-01-09] MEDS ORDERED: DOCUSATE SOD 100 MG CAP PO SCH (22:00)
[2023-01-09] MEDS ORDERED: ENOXAPARIN SOD 150 MG/1 ML SYRINGE SC SCH (22:00)
[2023-01-09] MEDS ORDERED: CLINDAMYCIN 300MG IV 50 ML IV SCH (22:00)
[2023-01-09] MEDS: CLINDAMYCIN HCL 150 MG CAP PO SCH (22:55)
[2023-01-09] MEDS: ATORVASTATIN 20 MG TAB PO SCH (22:56)
[2023-01-09 23:56] LABS: Sodium Urine < 10 mmol/L (40-220)
[2023-01-09 23:58] LABS: Urine Bacteria NONE SEEN /hpf (None Seen); Urine Blood 3+ /uL (Negative); Urine Clarity HAZY (Clear); Urine Color PINK (Yellow); Urine Protein, UAD 2+ (Negative); Urine Specific Gravity 1.018 (1.001-1.035); Urine Urobilinogen Normal (Negative); Urine WBC 209 /hpf (0 - 3)
[2023-01-10] VITALS: BP 101/74; PULSE 88; PULSE 92; RESP 14; O2SAT 97
[2023-01-10 00:01] LABS: Protein, Urine 220.8 mg/dL (0.0-11.9)
[2023-01-10 00:04] LABS: Creatinine, Urine 102.33 mg/dL (30.0-125.0)
[2023-01-10 00:05] VITALS: PULSE 87; RESP 20; O2SAT 95
[2023-01-10] MEDS: BUDESONIDE (INHALATION) 0.5 MG/2 ML NEB NEB SCH ×3 (00:15→07:24)
[2023-01-10] MEDS: IPRATROPIUM BROM 0.5 MG/2.5ML INH SOL NEB SCH ×3 (00:15→07:18)
[2023-01-10 00:16] VITALS: PULSE 89; RESP 18; O2SAT 97
[2023-01-10 00:39] LABS: INR 1.17 (0.9-1.15); Prothrombin Time 12.2 sec (9.3-11.8)
[2023-01-10 04:00] VITALS: PULSE 91
[2023-01-10] MEDS ORDERED: LORazepam 0.5 MG TAB PO PRN (04:00)
[2023-01-10 05:33] LABS: Alanine Aminotransferase 56 U/L (7-40); Albumin 3.3 g/dL (3.2-4.8); Alkaline Phosphatase 88 U/L (46-116); Anion Gap 8.2 (5-15); Aspartate Aminotransferase 38 U/L (13-40); BUN/Creatinine Ratio 14.6 (10.0-20.0); Blood Urea Nitrogen 20 mg/dL (9-23); Calcium 8.5 mg/dL (8.7-10.4); Carbon Dioxide 27.8 mmol/L (20-30); Chloride 101 mmol/L (98-107); Glucose 104 mg/dL (74-106); Magnesium 1.7 mg/dL (1.6-2.6); Potassium 3.5 mmol/L (3.5-5.1); Sodium 137 mmol/L (136-145)
[2023-01-10 05:34] LABS: Bilirubin, Total 1.7 mg/dL (0.2-1.0); Phosphorus 3.1 mg/dL (2.4-5.1); Total Protein 5.6 g/dL (5.7-8.2)
[2023-01-10 05:46] LABS: Basophils # (auto) 0 10 ^3/uL (0-0.2); Basophils % (auto) 0.5 % (0.0-2.0); Eosinophils # (auto) 0.2 10 ^3/uL (0-0.8); Eosinophils % (auto) 1.5 % (0.0-7.0); Hematocrit 44.5 % (41.0-53.0); Hemoglobin 14.5 g/dL (13.5-17.5); Lymphocytes # (auto) 2.1 10 ^3/uL (0.4-5.4); Lymphocytes % (auto) 21.2 % (10.0-50.0); Mean Corpuscular Hemoglobin 31.3 pg (28.0-32.0); Mean Corpuscular Hgb Conc. 32.6 g/dL (32.0-36.0); Monocytes # (auto) 1.2 10 ^3/uL (0-1.3); Monocytes % (auto) 12.3 % (0.0-12.0); Neutrophils # (auto) 6.5 10 ^3/uL (1.6-8.6); Neutrophils % (auto) 64.5 % (37.0-80.0); Nucleated Red Blood Cells % 0.4 %; Red Blood Cells 4.64 10^6/uL (4.5-5.90); Red Cell Distribution Width 16.4 % (11.8-14.3)
[2023-01-10] MEDS: BUMETANIDE 1 MG TAB PO SCH (06:00)
[2023-01-10] MEDS: CLINDAMYCIN HCL 150 MG CAP PO SCH (06:00)
[2023-01-10] MEDS: PIPERACILLIN-TAZOB 3.375GM 100 ML IV SCH (06:00)
[2023-01-10] MEDS ORDERED: EMPAGLIFLOZIN 10 MG TAB PO SCH (07:00)
[2023-01-10] MEDS ORDERED: LEVOTHYROXINE SODIUM 50 MCG TAB PO SCH (07:00)
[2023-01-10 09:03] LABS: Uric Acid 9.4 mg/dL (3.7-9.2)
[2023-01-10] MEDS ORDERED: BUMETANIDE 1mg/4ml VIAL (0.25mg/ml) IV SCH (18:00)
== END 2023-01-10 08:33 | disposition left against medical advice (07) | DRG 194 ==
LOC: ER 09:58 → TELE 14:16 → DOU IN ICU 22:55
PROVIDERS: ADMIT Internal Medicine Geriatric Medicine; ATTEND Internal Medicine Geriatric Medicine
PROC: 5A09357 Assistance with Respiratory Ventilation, Less than 24 Consecutive Hours, Continuous Positive Airway Pressure (ICD-10-PCS; principal; 2023-01-09)
DX: I13.0 Hypertensive heart and chronic kidney disease with heart failure and stage 1 through stage 4 chronic kidney disease, or unspecified chronic kidney disease (principal); I27.20 Pulmonary hypertension, unspecified; L03.115 Cellulitis of right lower limb; N17.9 Acute kidney failure, unspecified; J44.1 Chronic obstructive pulmonary disease with (acute) exacerbation; L03.116 Cellulitis of left lower limb; E11.22 Type 2 diabetes mellitus with diabetic chronic kidney disease; I48.0 Paroxysmal atrial fibrillation; I50.23 Acute on chronic systolic (congestive) heart failure; I73.9 Peripheral vascular disease, unspecified; N40.0 Benign prostatic hyperplasia without lower urinary tract symptoms; Z53.29 Procedure and treatment not carried out because of patient's decision for other reasons; E78.5 Hyperlipidemia, unspecified; E11.65 Type 2 diabetes mellitus with hyperglycemia; E66.01 Morbid (severe) obesity due to excess calories; Z68.38 Body mass index [BMI] 38.0-38.9, adult; E03.9 Hypothyroidism, unspecified; N18.32 Chronic kidney disease, stage 3b; Z90.5 Acquired absence of kidney; I25.2 Old myocardial infarction; Z80.0 Family history of malignant neoplasm of digestive organs; Z80.1 Family history of malignant neoplasm of trachea, bronchus and lung; Z82.49 Family history of ischemic heart disease and other diseases of the circulatory system; Z83.3 Family history of diabetes mellitus; Z87.442 Personal history of urinary calculi; Z86.73 Personal history of transient ischemic attack (TIA), and cerebral infarction without residual deficits; Z95.810 Presence of automatic (implantable) cardiac defibrillator; Z91.199 Patient's noncompliance with other medical treatment and regimen due to unspecified reason
CPT/HCPCS: 36415; 36600; 70450; 71045; 76705; 76775; 80053; 80061; 80074; 80307; 81001; 82306; 82570; 82607; 82805; 82962; 83036; 83605; 83735; 83880; 83930; 84100; 84156; 84300; 84443; 84484; 84550; 85025; 85379; 85610; 85730; 87040; 87081; 87086; 93005; 93306; 93925; 93970; 94640; 94660; 96365; 96367; 96372; 96375; 97163; 99291; G0378; J2543

== ENCOUNTER 2023-01-26 19:25 | Inpatient (IN) | payer MEDICAID ==
[~2023-01-26] VITALS: Ht 185.4 cm; Wt 95.0 kg
[~2023-01-26 19:25] MED LIST changes: +BUDE0.5S IN; +BUME1TAB3 PO; +LEVO25TA6 PO; +POTA10TA51 PO; +PRED10TA PO; +ZOFR4T PO
[2023-01-26 20:24] LABS: Basophils # (auto) 0 10 ^3/uL (0-0.2); Basophils % (auto) 0.3 % (0.0-2.0); Eosinophils # (auto) 0 10 ^3/uL (0-0.8); Eosinophils % (auto) 0.6 % (0.0-7.0); Hematocrit 45.8 % (41.0-53.0); Hemoglobin 14.9 g/dL (13.5-17.5); Lymphocytes # (auto) 1.9 10 ^3/uL (0.4-5.4); Lymphocytes % (auto) 22.3 % (10.0-50.0); Mean Corpuscular Hemoglobin 30.5 pg (28.0-32.0); Mean Corpuscular Hgb Conc. 32.6 g/dL (32.0-36.0); Mean Corpuscular Volume 93.5 fL (80.0-100.0); Monocytes # (auto) 0.8 10 ^3/uL (0-1.3); Monocytes % (auto) 9.7 % (0.0-12.0); Neutrophils # (auto) 5.7 10 ^3/uL (1.6-8.6); Neutrophils % (auto) 67.1 % (37.0-80.0); Nucleated Red Blood Cells % 0.6 %; Red Cell Distribution Width 16.4 % (11.8-14.3); White Blood Cell 8.4 10^3/uL (4.4-10.8)
[2023-01-26 20:42] LABS: Alanine Aminotransferase 54 U/L (7-40); Albumin 3.4 g/dL (3.2-4.8); Alkaline Phosphatase 90 U/L (46-116); Anion Gap 4.4 (5-15); Aspartate Aminotransferase 61 U/L (13-40); BUN/Creatinine Ratio 11.2 (10.0-20.0); Blood Urea Nitrogen 17 mg/dL (9-23); Calcium 8.9 mg/dL (8.7-10.4); Carbon Dioxide 31.6 mmol/L (20-30); Chloride 101 mmol/L (98-107); Glucose 153 mg/dL (74-106); Magnesium 1.8 mg/dL (1.6-2.6); Sodium 137 mmol/L (136-145)
[2023-01-26 20:43] LABS: Bilirubin, Total 2.2 mg/dL (0.2-1.0); Total Protein 5.7 g/dL (5.7-8.2)
[2023-01-26 20:45] LABS: INR 1.19 (0.9-1.15); Partial Thromboplastin Time 26.5 SEC (24.5-34.5); Prothrombin Time 12.4 sec (9.3-11.8)
[2023-01-26 21:04] LABS: Potassium 2.9 mmol/L (3.5-5.1)
[2023-01-26] MEDS ORDERED: POTASSIUM CHL 20MEQ/100ML 100 ML IV ONE (21:15)
[2023-01-26] MEDS ORDERED: ACETAMINOPHEN 325 MG TAB PO PRN (22:15)
[2023-01-26] MEDS ORDERED: NITROGLYCERIN 0.4 MG SL TAB SL PRN (22:15)
[2023-01-26] MEDS ORDERED: HYDROcodone-ACET 5/325MG TAB PO PRN (22:15)
[2023-01-26] MEDS ORDERED: ALBUTEROL SULF 2.5 MG/0.5ML(0.5%) NEB SOLN NEB PRN (22:15)
[2023-01-26] MEDS ORDERED: MORPHINE SULFATE INJ 2 MG/ml SYRG IV PRN (22:15)
[2023-01-26] MEDS ORDERED: ONDANSETRON HCL 4 MG/2 ML VIAL IV PRN (22:15)
[2023-01-26] MEDS ORDERED: FUROSEMIDE 40 MG/4 ML VIAL IV ONE (22:15)
[2023-01-26 23:22] VITALS: PULSE 99; RESP 13; O2SAT 94
[2023-01-26 23:47] VITALS: BP 123/88; PULSE 110; RESP 13; TEMP 97.8; O2SAT 94
[2023-01-27] VITALS (8 sets, daily range): BP systolic 115–124; BP diastolic 65–98; PULSE 66–122; RESP 16–25; TEMP 97.2; O2SAT 93–100
[2023-01-27 05:41] LABS: Urine Bacteria FEW /hpf (None Seen); Urine Blood Negative /uL (Negative); Urine Clarity Clear (Clear); Urine Color Yellow (Yellow); Urine Hyaline Cast MOD /lpf (0 - 2); Urine Protein, UAD TRACE (Negative); Urine Specific Gravity 1.014 (1.001-1.035); Urine Urobilinogen Normal (Negative); Urine WBC 2 /hpf (0 - 3)
[2023-01-27 05:46] LABS: Amphetamine Screen, Urine Pos (NEGATIVE); Barbiturate Scree,Urine Neg (NEGATIVE); Benzodiazephine Screen, Urine Neg (NEGATIVE); Cannabinoid Screen, Urine Neg (NEGATIVE); Cocaine Screen, Urine Neg (NEGATIVE); Opiate Scree,Urine Neg (NEGATIVE); Phencyclidine Screen, Urine Neg (NEGATIVE)
[2023-01-27 05:59] LABS: Basophils # (auto) 0 10 ^3/uL (0-0.2); Basophils % (auto) 0.5 % (0.0-2.0); Eosinophils # (auto) 0.1 10 ^3/uL (0-0.8); Eosinophils % (auto) 0.8 % (0.0-7.0); Hematocrit 45.7 % (41.0-53.0); Lymphocytes # (auto) 2.3 10 ^3/uL (0.4-5.4); Lymphocytes % (auto) 27.3 % (10.0-50.0); Mean Corpuscular Hemoglobin 30.8 pg (28.0-32.0); Mean Corpuscular Hgb Conc. 32.8 g/dL (32.0-36.0); Mean Corpuscular Volume 94.1 fL (80.0-100.0); Monocytes # (auto) 0.8 10 ^3/uL (0-1.3); Monocytes % (auto) 9.4 % (0.0-12.0); Neutrophils # (auto) 5.2 10 ^3/uL (1.6-8.6); Nucleated Red Blood Cells % 0.5 %; Red Blood Cells 4.86 10^6/uL (4.5-5.90); Red Cell Distribution Width 15.9 % (11.8-14.3); White Blood Cell 8.4 10^3/uL (4.4-10.8)
[2023-01-27] MEDS ORDERED: FUROSEMIDE 20 MG/2 ML VIAL IV SCH (06:00)
[2023-01-27 06:16] LABS: Alanine Aminotransferase 57 U/L (7-40); Alkaline Phosphatase 92 U/L (46-116); Calcium 8.9 mg/dL (8.7-10.4); Carbon Dioxide 33.7 mmol/L (20-30); Chloride 100 mmol/L (98-107); Glucose 119 mg/dL (74-106)
[2023-01-27 06:17] LABS: Albumin 3.5 g/dL (3.2-4.8); Anion Gap 5.3 (5-15); Aspartate Aminotransferase 60 U/L (13-40); BUN/Creatinine Ratio 14.6 (10.0-20.0); Bilirubin, Total 2.1 mg/dL (0.2-1.0); Blood Urea Nitrogen 23 mg/dL (9-23); Sodium 139 mmol/L (136-145)
[2023-01-27 06:25] LABS: Potassium 2.7 mmol/L (3.5-5.1)
[2023-01-27] MEDS ORDERED: POTASSIUM CHL 20 Meq TABLET PO ONE ×2 (06:30→12:00)
[2023-01-27] MEDS: LEVOTHYROXINE SODIUM 25 MCG TAB PO SCH (06:44)
[2023-01-27] MEDS: SILDENAFIL CITRATE 20 MG TAB PO SCH ×3 (08:13→20:57)
[2023-01-27] MEDS: PANTOPRAZOLE 40 MG TAB PO SCH (09:45)
[2023-01-27] MEDS ORDERED: ASPirin 81 mg TAB PO SCH (10:00)
[2023-01-27] MEDS: APIXABAN 5 MG TAB PO SCH ×2 (10:05→23:02)
[2023-01-27] MEDS ORDERED: MAGNESIUM OXIDE 400 MG TAB PO ONE (12:00)
[2023-01-27 12:58] LABS: COVID19 ANTIGEN SOFIA FIA NEGATIVE (NEGATIVE)
[2023-01-27] MEDS ORDERED: IPRATROPIUM BROM 0.5 MG/2.5ML INH SOL NEB PRN (13:30)
[2023-01-27] MEDS: FUROSEMIDE 20 MG/2 ML VIAL IV SCH ×2 (14:31→23:00)
[2023-01-27] MEDS ORDERED: LORazepam 2MG/ML-1ML VIAL IV PRN (15:30)
[2023-01-27] MEDS: LORazepam 0.5 MG TAB PO PRN (17:15)
[2023-01-27] MEDS: CARVEDILOL 3.125 MG TAB PO SCH ×2 (17:15→23:01)
[2023-01-27] MEDS ORDERED: TAMSULOSIN HYDROCHLORIDE 0.4 MG CAP PO SCH (18:00)
[2023-01-27] MEDS ORDERED: ATORVASTATIN 20 MG TAB PO SCH (22:00)
[2023-01-27] MEDS: SACUBITRIL-VALSARTAN 24mg/26mg TAB PO SCH (22:00)
[2023-01-27] MEDS: MAGNESIUM OXIDE 400 MG TAB PO SCH (23:02)
[2023-01-28] MEDS ORDERED: TEMAZEPAM 15 MG CAP PO ONE
[2023-01-28 03:25] LABS: Base Excess 0.9 mmol/L (-2.0-2.0)
[2023-01-28 06:53] VITALS: O2SAT 94
[2023-01-28] MEDS ORDERED: EMPAGLIFLOZIN 10 MG TAB PO SCH (07:00)
[2023-01-28 07:19] LABS: Alanine Aminotransferase 83 U/L (7-40); Albumin 3.4 g/dL (3.2-4.8); Alkaline Phosphatase 116 U/L (46-116); Anion Gap 6.1 (5-15); Aspartate Aminotransferase 110 U/L (13-40); BUN/Creatinine Ratio 17.5 (10.0-20.0); Bilirubin, Total 2.9 mg/dL (0.2-1.0); Blood Urea Nitrogen 25 mg/dL (9-23); Calcium 8.9 mg/dL (8.5-10.1); Carbon Dioxide 30.9 mmol/L (20-30); Chloride 102 mmol/L (98-107); Glucose 112 mg/dL (74-106); Magnesium 1.9 mg/dL (1.6-2.6); Sodium 139 mmol/L (136-145); Total Protein 5.9 g/dL (5.7-8.2)
[2023-01-28] MEDS: LEVOTHYROXINE SODIUM 25 MCG TAB PO SCH (07:39)
[2023-01-28] MEDS: FUROSEMIDE 20 MG/2 ML VIAL IV SCH ×2 (07:39→14:17)
[2023-01-28 08:00] VITALS: PULSE 104; PULSE 114; RESP 20; O2SAT 94
[2023-01-28 09:00] VITALS: BP 126/89; PULSE 114; RESP 19; TEMP 98.7; O2SAT 90
[2023-01-28] MEDS: MAGNESIUM OXIDE 400 MG TAB PO SCH (09:35)
[2023-01-28] MEDS: APIXABAN 5 MG TAB PO SCH (09:36)
[2023-01-28] MEDS: SILDENAFIL CITRATE 20 MG TAB PO SCH ×2 (09:36→14:17)
[2023-01-28] MEDS: PANTOPRAZOLE 40 MG TAB PO SCH (09:36)
[2023-01-28] MEDS: SACUBITRIL-VALSARTAN 24mg/26mg TAB PO SCH (09:36)
[2023-01-28] MEDS: CARVEDILOL 3.125 MG TAB PO SCH (09:38)
[2023-01-28] MEDS ORDERED: ASPirin 81 mg TAB PO SCH (10:00)
[2023-01-28] MEDS ORDERED: DOBUTamine 1000MCG/ML 250 ML IV SCH (11:15)
[2023-01-28] MEDS: LORazepam 0.5 MG TAB PO PRN (12:19)
[2023-01-28 13:00] VITALS: BP 150/74; PULSE 98; RESP 22; TEMP 98.1; O2SAT 98
[2023-01-28 15:51] VITALS: BP 130/60; PULSE 69; RESP 25; TEMP 98.1; O2SAT 86
== END 2023-01-28 15:58 | disposition left against medical advice (07) | DRG 133 ==
LOC: ER 19:25 → TELE 22:21 → TELE-EAST 01-27 15:49 → TELE-E-ADS 01-28 02:15
PROVIDERS: ADMIT Nurse Practitioner; ATTEND Internal Medicine
PROC: 5A0935A Assistance with Respiratory Ventilation, Less than 24 Consecutive Hours, High Flow/Velocity Cannula (ICD-10-PCS; principal; 2023-01-27)
DX: J96.21 Acute and chronic respiratory failure with hypoxia (principal); I21.A1 Myocardial infarction type 2; I50.23 Acute on chronic systolic (congestive) heart failure; N17.9 Acute kidney failure, unspecified; I27.20 Pulmonary hypertension, unspecified; I13.0 Hypertensive heart and chronic kidney disease with heart failure and stage 1 through stage 4 chronic kidney disease, or unspecified chronic kidney disease; I42.0 Dilated cardiomyopathy; J44.1 Chronic obstructive pulmonary disease with (acute) exacerbation; N18.9 Chronic kidney disease, unspecified; F15.10 Other stimulant abuse, uncomplicated; E11.22 Type 2 diabetes mellitus with diabetic chronic kidney disease; E66.01 Morbid (severe) obesity due to excess calories; I48.0 Paroxysmal atrial fibrillation; I25.10 Atherosclerotic heart disease of native coronary artery without angina pectoris; E87.6 Hypokalemia; Z20.822 Contact with and (suspected) exposure to COVID-19; Z68.27 Body mass index [BMI] 27.0-27.9, adult; Z53.29 Procedure and treatment not carried out because of patient's decision for other reasons; Z91.199 Patient's noncompliance with other medical treatment and regimen due to unspecified reason; Z90.81 Acquired absence of spleen; Z87.442 Personal history of urinary calculi; Z86.73 Personal history of transient ischemic attack (TIA), and cerebral infarction without residual deficits; Z83.3 Family history of diabetes mellitus; Z82.49 Family history of ischemic heart disease and other diseases of the circulatory system; Z80.1 Family history of malignant neoplasm of trachea, bronchus and lung; Z80.0 Family history of malignant neoplasm of digestive organs; Z79.01 Long term (current) use of anticoagulants
CPT/HCPCS: 36415; 36600; 70450; 71045; 74176; 80053; 80307; 81001; 82805; 83735; 83880; 84484; 85025; 85379; 85610; 85730; 87081; 87426; 93005; 93925; 94640; G0378; J3480